=== PATIENT | female | born 1950 | race African-American/Black ===

== ENCOUNTER 2020-07-05 16:17 | Outpatient (CLI) | payer MEDICARE, SELFPAY ==
--- NOTE | ~2020-07-05 | XR_ITS ---
XR knee LT 3V 07/05/2020 16:44 Indication: Left knee pain Procedure: 3 views left knee Comparison: No prior studies for comparison. Findings: There is mild-moderate tricompartment osteoarthritis. No fracture or traumatic malalignment . No no significant joint effusion. No foreign bodies. Impression: 1: Mild-moderate tricompartment osteoarthritis of the left knee. Reviewed, dictated and finalized at location A. Impression: 1: Mild-moderate tricompartment osteoarthritis of the left knee.
--- NOTE | ~2020-07-05 | XR_ITS ---
XR knee RT 3V 07/05/2020 16:44 Indication: Right knee pain Procedure: 3 views right knee Comparison: No prior studies for comparison. Findings: There is moderate-severe tricompartment osteoarthritis, most advanced in the lateral compar tment. There is near complete loss of joint space laterally with subchondral cyst formation and scler osis. There are prominent marginal osteophytes. No significant joint effusion. No acute fracture or t raumatic malalignment. Impression: 1: Moderate-severe tricompartment osteoarthritis of the right knee. Reviewed, dictated and finalized at location A. Impression: 1: Moderate-severe tricompartment osteoarthritis of the right knee.
== END 2020-07-05 16:18 | disposition home or self-care (01) ==
LOC: ANHIMG 16:21
PROVIDERS: PCP Internal Medicine; Visit Provider Internal Medicine
DX: M17.0 Bilateral primary osteoarthritis of knee (principal)
CPT/HCPCS: 73562

== ENCOUNTER 2020-07-06 10:00 | Outpatient (CLI) | payer MEDICARE, SELFPAY ==
--- NOTE | 2020-07-06 10:18 | ECG_ITS ---
Measurements Intervals [place] Rate: 77 P: 59 VT: 153 QRS: 26 QRSD: 114 T: 25 QT: 398 QTc: 452 Interpretive Statements SINUS RHYTHM POSSIBLE LEFT ATRIAL ENLARGEMENT INTRAVENTRICULAR CONDUCTION DELAY BORDERLINE ST-T WAVE ABNORMALITY- DIFFUSE LEADS BASELINE ARTIFACT- I, II, III, AVL, AVF, V2-V6 BORDERLINE ECG Electronically Signed On 07-06-2020 10:51:39 CDT by Luís Bower D.O.
[2020-07-06 10:39] LABS: Add Urine Microscopic? YES; Appearance Urine Clear (Clear); Bacteria Urine Trace /hpf; Bilirubin Urine Negative (Negative); Blood Urine 2+ (Negative); Color Urine Yellow (Yellow); Glucose Urine UA Negative (Negative); Ketones Urine Negative (Negative); Leukocyte Esterase Ur 2+ LEU/UL (Negative); Mucus Urine Rare /lpf; Nitrate Urine Negative (Negative); Protein Urine 2+ mg/dL (Negative); RBC Urine >75 /hpf (0-2); Specific Grav Ur 1.023 (1.001-1.035); Squamous Epithelial Cell Urine Moderate /hpf (Few); Urobilinogen Urine Negative mg/dL (<2.0)
== END 2020-07-06 10:01 | disposition home or self-care (01) ==
LOC: ANHLAB 10:04
PROVIDERS: PCP Internal Medicine; Visit Provider Internal Medicine
DX: N39.41 Urge incontinence (principal); I10 Essential (primary) hypertension; I45.9 Conduction disorder, unspecified
CPT/HCPCS: 81001; 87086; 93005

== ENCOUNTER 2020-08-18 14:09 | Outpatient (CLI) | payer MEDICARE, SELFPAY ==
--- NOTE | ~2020-08-18 | MM_ITS ---
EXAMINATION: MM screening maryana BI w brian HISTORY: Screening mammogram TECHNIQUE: Craniocaudal and mediolateral oblique 3-D tomosynthesis images were obtained and synthetic 2-D images were generated. CAD analysis was submitted and interpreted. COMPARISON: No prior mammogram is available for comparison at this institution. BREAST PARENCHYMAL COMPOSITION: The breasts are heterogeneously dense, which may obscure small masses . FINDINGS: Scattered benign-appearing calcifications are present. There is no evidence of suspicious m ass, calcification, or architectural distortion to suggest malignancy in either breast. IMPRESSION: 1. No mammographic evidence of malignancy. 2. Recommend routine screening mammography in one year. BI-RADS Category 2: Benign finding(s). Reviewed, dictated and finalized at location A.
--- NOTE | ~2020-08-18 | DEXA_ITS ---
Bone Density Report Name: Bianka Lassiter Age: 70 Sex: Female Ethnicity: Black Date of : 1950 Indication: postmenopausal; height loss; hysterectomy; Referring Provider: ROSHAN SOSA Study: Bone densitometry was performed. Exam Date: August 18, 2020 Accession number: [id number] Bone Density: Region BMD T-score Z-score Classification AP Spine (L1, L2, L3) 1.019 0.0 1.3 Normal Femoral Neck (Left) 0.779 -0.6 0.2 Normal Total Hip (Left) 0.939 0.0 0.5 Normal Total Hip Bilateral Avg 0.921 -0.2 0.4 Normal Femoral Neck (Right) 0.712 -1.2 -0.3 Osteopenia Total Hip (Right) 0.902 -0.3 0.3 Normal World Health Organization criteria for BMD impression classify patients as: Normal (T-score at or above -1.0), Osteopenia (T-score between -1.0 and -2.5), or Osteoporosis (T-score at or below -2.5). 10-year Fracture Risk(1): Major Osteoporotic Fracture 3.8% Hip Fracture 0.4% Reported Risk Factors: [place] (Black), Neck BMD=0.712, BMI=33.5 (1) FRAX(R) Version 3.08. Fracture probability calculated for an untreated patient. Fracture probability may be lower if the patient has received treatment. Clinical Information Provided by Patient: Has used the following medications: Vitamin D, Calcium Has the following medical conditions: Hysterectomy Patient maximum height was 64 Menopause Age: 51 No regular weight bearing exercise Drinks caffeinated beverages Onset of menses at age 12 Number of children 0 Impression: The patient has low bone mass, based on the Right Femoral Neck T-score. The patient has an estimated ten-year risk of hip fracture of 0.4% and an estimated ten-year risk of major fracture of 3.8%, based on the WHO FRAX algorithm. Discussion: BONE DENSITY IS LOW AT ONE OR MORE SKELETAL SITES. This patient's lowest T-score is low at one or more skeletal sites. It meets the World Health Organization's (WHO) criteria for ?low bone mass? (T-score between -1.0 and -2.5). The patient's 10-year risk of fracture as calculated by FRAX is less than the threshold where pharmacological therapy is recommended by the National Osteoporosis Foundation (NOF). However, all treatment decisions require clinical judgment and consideration of individual patient factors, including patient preferences, comorbidities, previous drug use, risk factors not captured in the FRAX model (e.g., frailty, falls, vitamin D deficiency, increased bone turnover, interval significant decline in bone density) and possible under or overestimation of fracture risk by FRAX. The patient should follow a healthful lifestyle (good nutrition with adequate calcium and vitamin D, and appropriate weight-bearing exercise). Follow-Up: Consider repeating this study in 2 to 3 years to reassess this patient's status, or sooner if there is some new clinical indication.
== END 2020-08-18 14:10 | disposition home or self-care (01) ==
LOC: ANHIMG 14:10
PROVIDERS: PCP Internal Medicine; Visit Provider Internal Medicine
DX: Z12.31 Encounter for screening mammogram for malignant neoplasm of breast (principal); Z78.0 Asymptomatic menopausal state; M85.851 Other specified disorders of bone density and structure, right thigh
CPT/HCPCS: 77063; 77067; 77080

== ENCOUNTER 2020-09-07 08:45 | Outpatient (CLI) | payer MEDICARE, MEDICAID, SELFPAY ==
--- NOTE | 2020-09-07 08:48 | ECHO_ITS ---
Patient Info Name: Bianka Lassiter Age: 70 years : 1950 Gender: Female Ht: 64 in Wt: 180 lbs BSA: 1.95 m2 HR: 64 bpm BP: 188 / 92 mmHg Technical Quality: Good Exam Date: 09/07/2020 9:10 AM Exam Location: [facility] Patient Status: Outpatient Admit Date: 09/07/2020 Staff Ordering Physician: Luís Bower DO Sales Broker: Rohini Allen RDCS Attending Provider: Luís Bower DO Referring Physician: Sathish COLLAZO; Exam Type: CA echo doppler color flow Study Info Indications - ABBASI Complete two-dimensional, color flow and Doppler transthoracic echocardiogram is performed. Summary 1. Complete two-dimensional, color flow and Doppler transthoracic echocardiogram is performed. 2. Left ventricular chamber dimension is normal. 3. Left ventricular systolic function is normal, estimated at 60-65%. 4. There is mildly increased left ventricular wall thickness. 5. The left ventricular diastolic function is grade I diastolic dysfunction. 6. E/e' 20 is elevated. 7. Global longitudinal strain is normal at -17.6%. 8. Left atrial chamber dimension is mildly enlarged. 9. There is mild aortic valve sclerosis. 10. The mitral valve has moderately calcified annulus. 11. There is trace mitral valve regurgitation. 12. There is trace tricuspid valve regurgitation. 13. No pulmonary hypertension, estimated pulmonary arterial systolic pressure is 35 mmHg. Left Ventricle E/e' 20 is elevated. Global longitudinal strain is normal at -17.6%. Left ventricular chamber dimension is normal. Left ventricular systolic function is normal, estimated at 60-65%. There is mildly increased left ventricular wall thickness. The left ventricular diastolic function is grade I diastolic dysfunction. Right Ventricle Right ventricular chamber dimension is normal. Right ventricular systolic function is normal. Left Atria Left atrial chamber dimension is mildly enlarged. Right Atria Right atrial chamber dimension is normal. Aortic Valve The aortic valve is trileaflet. There is mild aortic valve sclerosis. There is no aortic valve stenosis. There is no aortic valve regurgitation. Pulmonic Valve There is no pulmonic regurgitation. Mitral Valve The mitral valve has moderately calcified annulus. There is no mitral valve stenosis. There is trace mitral valve regurgitation. Tricuspid Valve There is trace tricuspid valve regurgitation. No pulmonary hypertension, estimated pulmonary arterial systolic pressure is 35 mmHg. Pericardium/Pleural There is no pericardial effusion. Inferior Vena Cava Normal inferior vena cava with >50% collapse upon inspiration consistent with normal right atrial pressure, 5 mmHg. Aorta The aortic root size at the sinus of Valsalva is normal. Left Ventricular Outflow Tract Name Value Normal LVOT 2D LVOT Diameter 2.0 cm LVOT Doppler LVOT Peak Gradient 5 mmHg LVOT Mean Gradient 3 mmHg LVOT VTI 27 cm LVOT VTI/AV VTI Ratio 0.5 LVOT Stroke Volume
== END 2020-09-07 08:46 | disposition home or self-care (01) ==
LOC: ANHCARD 08:45
PROVIDERS: PCP Internal Medicine; Visit Provider Internal Medicine Cardiovascular Disease
DX: R06.00 Dyspnea, unspecified (principal); R94.39 Abnormal result of other cardiovascular function study
CPT/HCPCS: 93306

== ENCOUNTER 2020-10-20 15:12 | Outpatient (CLI) | payer MEDICARE, SELFPAY ==
[2020-10-20 15:42] LABS: Anion Gap 9 mmol/L (8-16); Blood Urea Nitrogen 18 mg/dL (7-17); Calcium 9.8 mg/dL (8.4-10.2); Carbon Dioxide 26 mmol/L (22-30); Chloride 104 mmol/L (98-107); Cholesterol 143 mg/dL (0-200); Estimated Glomerular Filt Rate 45; Glucose 102 mg/dL (65-110); HDL Direct 42 mg/dL; Potassium 4.1 mmol/L (3.4-5.0); Sodium 139 mmol/L (137-145); Triglycerides 184 mg/dL (<150)
[2020-10-20 15:48] LABS: Hemoglobin A1C 6.5 % (<5.7)
[2020-10-20 15:53] LABS: LDL Cholesterol Direct 48 mg/dL
[2020-10-20 16:06] LABS: MALB Creatinine Ratio 20.6 mg/g (0-30); Microalbumin Urine Random 22.4 mg/L (0-16.7)
[2020-10-20 17:06] LABS: Vitamin D 25 Hydroxy 79.4 ng/mL
== END 2020-10-20 15:13 | disposition home or self-care (01) ==
PROVIDERS: PCP Internal Medicine; Visit Provider Internal Medicine
DX: E55.9 Vitamin D deficiency, unspecified (principal); E78.5 Hyperlipidemia, unspecified; I10 Essential (primary) hypertension; R73.01 Impaired fasting glucose
CPT/HCPCS: 36415; 80048; 80061; 82043; 82306; 83036

== ENCOUNTER 2020-11-14 02:09 | Day surgery (SDC) | payer MEDICARE, SELFPAY ==
[2020-11-01 13:14] VITALS: BMI 34.9
[2020-11-14 11:51] VITALS: BP 155/115; PULSE 80; RESP 20; TEMP 36.1; O2SAT 100
--- NOTE | 2020-11-14 12:32 | WPDANESEPPF ---
Anes - Initial Pre Proc Eval Procedure: Operation Date: 11/14/20 13:00 Proposed Procedures p Screening Colonoscopy - Umesh Ponce MD Date/Time: 11/14/20 12:32 Surgeon: Umesh Ponce MD Pre Op Diagnosis: neoplasm screening Patient Data Age: 70 Gender: F Height: 1.55 m Weight: 79.9 kg Last Vital Signs Temp 96.9 F L 11/14/20 11:51 Pulse 80 11/14/20 11:51 Resp 20 11/14/20 11:51 BP 155/115 H 11/14/20 11:51 Pulse Ox 100 11/14/20 11:51 Allergies Allergy/AdvReac Type Severity Reaction Status Date / Time No Known Allergies Allergy Verified 11/14/20 11:47 Home Medications Medication Instructions Recorded Confirmed Type aspirin 81 mg tablet,delayed 81 mg PO DAILY #1 tablet 07/05/20 11/01/20 Rx release rosuvastatin 10 mg tablet 10 mg PO DAILY #90 tablet 07/13/20 11/01/20 Rx Vascepa 1 gram capsule 2 g PO BID 30 Days #120 cap NS 10/25/20 11/01/20 Rx amlodipine 10 mg tablet 10 mg PO DAILY #90 tablet 10/25/20 11/01/20 Rx carvedilol 12.5 mg tablet 12.5 mg PO Q12H 90 Days #180 tablet 10/25/20 11/01/20 Rx clopidogrel 75 mg tablet 75 mg PO DAILY #90 tablet 10/25/20 11/01/20 Rx hydrochlorothiazide 25 mg tablet 25 mg PO DAILY #90 tablet 10/25/20 11/01/20 Rx losartan 100 mg tablet 100 mg PO DAILY #90 tablet 10/25/20 11/01/20 Rx metformin 500 mg tablet 500 mg PO BID 30 Days #60 tablet 10/25/20 11/01/20 Rx semaglutide 3 mg tablet 3 mg PO DAILY 30 Days #30 tablet 10/25/20 11/01/20 Rx Patient hx anesthesia problems: none Family hx anesthesia problems: none Results Review: All pre-operative results and documents have been reviewed as part of the pre-operative evaluation. [facility] Past Medical History Medical History (Updated 11/14/20 @ 12:31 by Greg Silva MD) CHF (congestive heart failure) Chronic GERD ABBASI (dyspnea on exertion) Dyslipidemia Essential hypertension History of CVA (cerebrovascular accident) Hypertension Stroke Ulcer Surgical History Surgical History History of hysterectomy Social History Social History (Updated 10/25/20 @ 10:54 by Jemima Bridges) Alcohol intake: current Alcohol use details: social Substance use: never Living arrangements: with family Additional living arrangements comments: [facility] Gender identity (if verbalized by the patient): Female Spiritual care concerns: No Anes - Eval Final PreProcedure Day of Procedure 11/14/20 12:32 Patient weight: obese Heart: regular rate and rhythm Lungs: clear to auscultation Airway: Mallampati scale class III Neurological: alert and oriented Last oral intake: >/= 8 hours ASA classification: III Emergent: no Anesthetic plan: proceed Anesthesia type and monitoring: general GIVS and standard monitoring Results Review: All pre-operative results and documents have been reviewed as part of the pre-operative evaluation. Informed Consent: The patient's anesthetic plan and its attendant risks and benefits were discussed with the patient/family/POA. Questions were solicited and answers provided to the satisfaction of the patient/family/POA.
[2020-11-14] MEDS: LACTATED RINGERS 1,000 ML 150 ML IV CONT (12:33)
[2020-11-14 12:39] LABS: Glucose Point of Care 85 mg/dl (65-105)
--- NOTE | 2020-11-14 12:58 | PM.HPGS ---
History of Present Illness History of Present Illness Consent: Risks, benefits, and alternatives have been discussed and questions answered. Patient agrees to proceed with procedure. Chief complaint: neoplasm screening Narrative: Bianka Lassiter is a 70 year old female here for screening colonoscopy, last one 2004 Review of Systems Constitutional: Constitutional: Denies headache(s) and Denies weakness Eyes: Eyes: Denies blurry vision ENT: Reports Normal hearing present, Denies headache(s) and Denies neck pain Cardiovascular: Cardiovascular: Denies chest pain and Denies dyspnea Respiratory: Respiratory: Denies dyspnea Gastrointestinal: Gastrointestinal: Reports no additional gastrointestinal complaints Genitourinary: Genitourinary: Denies dysuria Musculoskeletal: Musculoskeletal: Denies neck pain Integumentary/Breasts: Skin/Breast: Denies dry skin Neurologic: Reports Normal hearing present, Denies headache(s) and Denies weakness Psychiatric: Psychiatric: Denies anxiety Endocrine: Endocrine: Denies change in body appearance Hematologic/Lymphatic: Hematologic/Lymphatic: Denies easy bleeding Allergic/Immunologic: Allergic/Immunologic: Denies urticaria PMFSH Past Medical History Medical History (Updated 11/14/20 @ 12:58 by Umesh Ponce MD) CHF (congestive heart failure) Chronic GERD Colon cancer screening ABBASI (dyspnea on exertion) Dyslipidemia Essential hypertension History of CVA (cerebrovascular accident) Hypertension Stroke Ulcer Surgical History Surgical History History of hysterectomy Social History Social History (Updated 10/25/20 @ 10:54 by Jemima Bridges) Alcohol intake: current Alcohol use details: social Substance use: never Living arrangements: with family Additional living arrangements comments: [facility] Gender identity (if verbalized by the patient): Female Spiritual care concerns: No Meds Home Medications and Allergies Home Medications Medication Instructions Recorded Confirmed Type aspirin 81 mg tablet,delayed 81 mg PO DAILY #1 tablet 07/05/20 11/01/20 Rx release rosuvastatin 10 mg tablet 10 mg PO DAILY #90 tablet 07/13/20 11/01/20 Rx Vascepa 1 gram capsule 2 g PO BID 30 Days #120 cap NS 10/25/20 11/01/20 Rx amlodipine 10 mg tablet 10 mg PO DAILY #90 tablet 10/25/20 11/01/20 Rx carvedilol 12.5 mg tablet 12.5 mg PO Q12H 90 Days #180 tablet 10/25/20 11/01/20 Rx clopidogrel 75 mg tablet 75 mg PO DAILY #90 tablet 10/25/20 11/01/20 Rx hydrochlorothiazide 25 mg tablet 25 mg PO DAILY #90 tablet 10/25/20 11/01/20 Rx losartan 100 mg tablet 100 mg PO DAILY #90 tablet 10/25/20 11/01/20 Rx metformin 500 mg tablet 500 mg PO BID 30 Days #60 tablet 10/25/20 11/01/20 Rx semaglutide 3 mg tablet 3 mg PO DAILY 30 Days #30 tablet 10/25/20 11/01/20 Rx Allergies Allergy/AdvReac Type Severity Reaction Status Date / Time No Known Allergies Allergy Verified 11/14/20 11:47 Vital Signs Vital Signs - 24 hr 11/14/20 11:51 Temperature 96.9 F L Pulse Rate 80 Respiratory Rate 20 Blood Pressure 155/115 H Pulse Oximetry 100 Exam Const: General: comfortable and no acute distress HENMT: General nose exam: Normal nares present Eyes: General: appearance normal, both eyes and all related structures Neck: Neck: no JVD Resp: Auscultation: clear to auscultation bilaterally Cardio: Rate: regular rate Rhythm: regular rhythm GI: Inspection: non-distended GI Palp: Yes Soft to palpation Skin: General skin exam: normal color Neuro: General: gait normal Speech: normal speech Extrem: General: normal to inspection Psych: Mental Status: mental status grossly normal Assessment and Plan Assessment and plan (1) Colon cancer screening: Code(s): Z12.11 - Encounter for screening for malignant neoplasm of colon Status: Acute Assessment and P
[2020-11-14 13:21] VITALS: BP 183/92; PULSE 59; RESP 17; O2SAT 100
[2020-11-14 13:31] VITALS: BP 202/79; PULSE 50; RESP 14; O2SAT 100
[2020-11-14 13:41] VITALS: BP 194/72; PULSE 51; RESP 14; O2SAT 100
[2020-11-14 13:50] VITALS: BP 189/78; PULSE 61; RESP 18; O2SAT 100
--- NOTE | 2020-11-14 13:56 | SUR.PHASEII ---
Addressed patients elevated blood pressure with Dr. Silva, no new orders received. Pt. instructed to take po B/P med when she gets home.
== END 2020-11-14 14:28 | disposition home or self-care (01) ==
PROVIDERS: PCP Internal Medicine; Referring Provider Student in an Organized Health Care Education/Training Program; Visit Provider Internal Medicine Gastroenterology
PROC: 0DJD8ZZ Inspection of Lower Intestinal Tract, Via Natural or Artificial Opening Endoscopic (ICD-10-PCS; CPT 45378; principal; 2020-11-14 13:00)
DX: Z12.11 Encounter for screening for malignant neoplasm of colon (principal); K57.30 Diverticulosis of large intestine without perforation or abscess without bleeding; K64.8 Other hemorrhoids; I11.0 Hypertensive heart disease with heart failure; I50.9 Heart failure, unspecified; K21.9 Gastro-esophageal reflux disease without esophagitis; E78.5 Hyperlipidemia, unspecified; Z86.73 Personal history of transient ischemic attack (TIA), and cerebral infarction without residual deficits; Z79.02 Long term (current) use of antithrombotics/antiplatelets; Z79.84 Long term (current) use of oral hypoglycemic drugs; Z79.82 Long term (current) use of aspirin; E66.9 Obesity, unspecified; Z68.33 Body mass index [BMI] 33.0-33.9, adult
CPT/HCPCS: G0121; 82948; J2704; J7120

== ENCOUNTER 2021-01-30 11:31 | Outpatient (CLI) | payer OTHER, SELFPAY ==
[2021-01-30 12:07] LABS: Alanine Aminotransferase 16 U/L (4-35); Albumin Level 4.9 g/dL (3.5-5.1); Alkaline Phosphatase 79 U/L (38-126); Anion Gap 9 mmol/L (8-16); Aspartate Amino Transferase 18 U/L (14-36); Bilirubin,Total 1.1 mg/dL (0.2-1.3); Blood Urea Nitrogen 19 mg/dL (7-17); Calcium 10.3 mg/dL (8.4-10.2); Carbon Dioxide 27 mmol/L (22-30); Chloride 101 mmol/L (98-107); Cholesterol 237 mg/dL (0-200); Estimated Glomerular Filt Rate 42; Glucose 104 mg/dL (65-110); HDL Direct 47 mg/dL; Potassium 3.8 mmol/L (3.4-5.0); Sodium 137 mmol/L (137-145); Triglycerides 160 mg/dL (<150)
[2021-01-30 12:18] LABS: LDL Cholesterol Direct 118 mg/dL
[2021-01-30 12:50] LABS: Creatinine Urine 202.8 mg/dL
[2021-01-30 12:55] LABS: MALB Creatinine Ratio 17.9 mg/g (0-30); Microalbumin Urine Random 36.4 mg/L (0-16.7)
== END 2021-01-30 11:32 | disposition home or self-care (01) ==
PROVIDERS: PCP Internal Medicine; Visit Provider Internal Medicine
DX: E78.5 Hyperlipidemia, unspecified (principal); E11.22 Type 2 diabetes mellitus with diabetic chronic kidney disease; N18.31 Chronic kidney disease, stage 3a; E78.2 Mixed hyperlipidemia
CPT/HCPCS: 36415; 80053; 80061; 82043; 83036

== ENCOUNTER 2021-04-14 09:27 | Outpatient (CLI) | payer OTHER, SELFPAY ==
[2021-04-14 09:52] LABS: Alanine Aminotransferase 17 U/L (4-35); Albumin Level 4.6 g/dL (3.5-5.1); Alkaline Phosphatase 75 U/L (38-126); Anion Gap 10 mmol/L (8-16); Aspartate Amino Transferase 38 U/L (14-36); Bilirubin,Total 0.9 mg/dL (0.2-1.3); Blood Urea Nitrogen 15 mg/dL (7-17); Calcium 8.7 mg/dL (8.4-10.2); Carbon Dioxide 25 mmol/L (22-30); Chloride 107 mmol/L (98-107); Estimated Glomerular Filt Rate 60; Glucose 106 mg/dL (65-110); Potassium 4.1 mmol/L (3.4-5.0); Sodium 142 mmol/L (137-145)
== END 2021-04-14 09:28 | disposition home or self-care (01) ==
LOC: ANHLAB 09:28
PROVIDERS: PCP Internal Medicine; Visit Provider Internal Medicine
DX: E83.52 Hypercalcemia (principal); I10 Essential (primary) hypertension
CPT/HCPCS: 36415; 80053

== ENCOUNTER 2022-09-21 13:26 | Outpatient (CLI) | payer OTHER, SELFPAY ==
[2022-09-21 13:57] LABS: Hemoglobin A1C 6.4 % (<5.7)
== END 2022-09-21 13:27 | disposition home or self-care (01) ==
PROVIDERS: PCP Internal Medicine; Visit Provider Nurse Practitioner Adult Health
DX: E11.9 Type 2 diabetes mellitus without complications (principal)
CPT/HCPCS: 36415; 83036